=== PATIENT | male | born 1945 | race Caucasian/White ===

== ENCOUNTER → 2016-09-26 | Outpatient (CLI) | payer OTHER | LOC: MMPC 10:00 | PROVIDERS: ATTEND Podiatrist Foot & Ankle Surgery | DX: G89.18 Other acute postprocedural pain (principal) ==

== ENCOUNTER 2017-09-30 21:06 | Inpatient (IN) ==
--- NOTE | 2017-09-30 21:21 | PDOC ---
Lower Extremity Problem HPI - General Chief Complaint: Lower Extremity Problem/Injury Stated Complaint: LEFT LEG NUMBNESS AND TINGLING Date Seen by Provider: 09/30/17 Time Seen by Provider: 21:06 Source: POSITIVE: Patient, EMS Exam Limitations: POSITIVE: No limitations Nurse's Notes Reviewed & Considered: Yes EMS Report Reviewed & Considered: Verbal - History of Present Illness Initial Comments: This is a well-developed, well-nourished, 71-year-old male, complaining of stroke symptoms. Patient states that at 1800 hrs. today he had an episode of dizziness that seemed to have improved. He then went out with his family to eat at a local restaurant and approximately 2000 hrs. developed numbness in his left arm and leg with weakness on his left side as well. He had trouble standing because of the weakness in his leg, he did have ataxia present in both arm and leg, and states that his left hand was also weak. He denies any headache, no sore throat, no chest pain or shortness of breath, no nausea vomiting or diarrhea, no hematuria or dysuria, no rashes, no myalgias or arthralgias. Patient is alert and oriented to person place and time, is able to identify his age, as well as date and location. He states he did have some blurry vision in his left eye and that his symptoms have significantly improved. Body Location Affected: REPORTS: Upper Extremity (L), Lower Extremity (L) Timing: REPORTS: Abrupt Duration: 1-3 hours Severity: Moderate Recent Injury: REPORTS: No Context of Injury: DENIES: Fall, Twist, Direct Blow, Incision, Burn, Crush, Stab , Prolonged Pressure on Ext, Other Location at Time of Onset: REPORTS: Home Quality: REPORTS: Other (Numbness and tingling in his left-sided extremities) Modifying Factors: REPORTS: Nothing Exacerbates Associated Symptoms: DENIES: Chest Pain, Shortness of Breath, Rapid Heart Rate, Fainting, Other Similar Symptoms Previously: No Recent Care Received: REPORTS: Denies Any Prior Injuries Related to Current Complaint?: No - Patient Home Medications Home Medications: Home Medications Multivitamin [Multi-Vitamin Daily] 1 tab PO DAILY 09/30/17 - Patient Allergies Allergies/Adverse Reactions: Allergies 3 Allergy/AdvReac Type Severity Reaction Status Date / Time No Known Drug Allergies Allergy NOT Verified 09/30/17 21:45 APPLICABLE Past Medical History - heen HEENT History: Denies History Additional HEENT History: GLASSES Cardiovascular History: Hypertension, Hyperlipidemia Additional Respiratory History: HX OF PNEUMONIA Gastrointestinal History:  Additional Gastrointestinal History: HX OF POLYPS Additional Genitourinary History: BPH Endocrine History: Denies History Musculoskeletal History: Arthritis, Back Pain Prosthesis or Implant: No Neurological History: Denies History Blood Disorders: Denies History Psychiatric History: Denies History History of Sexually Transmitted Diseases: No Cancer History: Skin History of MDRO: No History of Other Communicable Diseases: No Alcohol Use: Rarely In the Past 12 Months, Have Used or Abuse Any Substance: None Previous Surgical History: Yes Type / Date of Surgery: SKIN CA REMOVAL/ COLONOSCOPY/ VASECTOMY Anesthesia Reactions: No Malignant Hyperthermia: No ROS - Limitations ROS Limitations: No Limitations Constitution: REPORTS: Weakness (Left-sided) Cardiovascular: REPORTS: Denies Cardiac Symptoms Respiratory: REPORTS: Denies Resp Symptoms Neurological: REPORTS: Dizziness, Tingling (Left-sided extremities), Numbness ( Left-sided extremities), Difficulty Walking, Weakness (Left-sided extremities) Gastrointestinal: REPORTS: Denies GI Symptoms Endocrine: REPORTS: Denies Symptoms Musculoskeletal: REPORTS: Denies MS Symptoms Genitourinary: REPORTS: Denies Symptoms Eyes: REPORTS: Denies Symptoms ENT: REPORTS: Denies Symptoms Skin: REPORTS: Denies Skin Symptoms Lympathic: REPORTS: Denies Lympathic Symptoms Immunologic: POSITIVE: Denies Symptoms Psychiatric: POSITIVE: Denies Psych Symptoms Images - Uploaded Photos Uploaded Photos: Lower Ext Problem Progress - Results Reviewed by me Xrays/CTs/US Reviewed by me: Yes Discussed with Radiologist: Yes Lab Results Reviewed by Me: Yes CBC and BMP: 09/30/17 21:38 09/30/17 21:38 - Patient's Progress MDM / ED Course: Patient was administered NIH stroke scale for which she scored a 5. He scored a 14 left arm drift 2 for left leg drift and a 2 for limb ataxia remainder of the exam was 0. CT of his head shows no acute intracranial abnormalities. - Consult Consult (If Yes, Name of Consulting MD & Time Called): Yes (Dr. Jimena jA 22:20 , Dr. Ibarra [id number]) Consulting MD will see pt:: POSITIVE: [facility] Admit Counseled: POSITIVE: Patient, Family, RE: Lab Results, RE: Radiology Results, RE : DX, RE: Need for F/U Patient Care Time - Estimated PCT Patient Care Time (In Minutes): 45 Vital Signs - VS Reviewed Vital Signs Reviewed: Yes Discharge Clinical Impression: TIA (transient ischemic attack) Discharge Disposition: Admit to Inpatient Condition: Stable Patient Instructions Given at Discharge: Transient Ischemic Attack (ED) Follow Up With: ROSA ZULUAGA [STAFF PHYSICIAN] - Date Decision to Admit to Inpatient: 09/30/17 Time Decision to Admit to Inpatient: 22:36
[2017-09-30] MEDS ORDERED: Sodium Chloride 0.9% 1,000 ML PRIMARY IV ONE (21:27)
[2017-09-30] MEDS ORDERED: CloNIDine Tab 0.1 MG TABLET PO ONE (21:27)
--- NOTE | 2017-09-30 21:41 | DI ---
EXAM: CT Head Without Intravenous Contrast CLINICAL HISTORY: ITS.REASON numbness, lt. arm and leg, weakness lt side Physician Notes: Tech Comments: TECHNIQUE: Axial computed tomography images of the head/brain without intravenous contrast. COMPARISON: No relevant prior studies available. FINDINGS: Brain: A 4 cm posterior left parietal arachnoid cyst appears to be present. No hemorrhage. No significant white matter disease. Ventricles: Unremarkable. No ventriculomegaly. Bones/joints: Unremarkable. No acute fracture. Soft tissues: Unremarkable. Sinuses: Unremarkable as visualized. No acute sinusitis. Mastoid air cells: Unremarkable as visualized. No mastoid effusion. IMPRESSION: No acute findings.
[2017-09-30 21:43] LABS: BASOPHILS # (AUTO) 0.04 10*3/UL; BASOPHILS % (AUTO) 0.5 % (0-1); EOSINOPHILS # (AUTO) 0.25 10*3/UL; EOSINOPHILS % (AUTO) 2.9 % (0-8); Hematocrit [HCT] 41.3 % (42.0-52.0); Hemoglobin [HGB] 14.5 g/dL (14.0-18.0); LYMPHOCYTES # (AUTO) 2.54 10*3/uL; MEAN CORPUSCULAR HEMOGLOBIN 29.7 PG (27-31); MEAN CORPUSCULAR HGB CONC 35.1 g/dL (33-37); MEAN CORPUSCULAR VOLUME 84.6 FL (80-90); MEAN PLATELET VOLUME 11.7 FL (7.4-12.2); MONOCYTES # (AUTO) 0.62 10*3/UL (0.3-0.8); MONOCYTES % (AUTO) 7.2 % (5-15); NEUTROPHILS # (AUTO) 5.18 10*3/UL; NEUTROPHILS % (AUTO) 59.8 % (50-80); RED BLOOD COUNT 4.88 10^6/uL (4.70-6.10)
[2017-09-30 21:45] LABS: PLATELET MORPHOLOGY COMMENT NORMAL MORPHOLOGY (NORM); RBC MORPHOLOGY COMMENT NORMAL MORPHOLOGY (NORM); WBC MORPHOLOGY COMMENT NORMAL MORPHOLOGY (NORM)
[2017-09-30 21:52] LABS: BLOOD UREA NITROGEN 18 mg/dL (7-22); SERUM ALBUMIN 4.5 g/dL (3.5-4.8)
[2017-09-30 22:52] LABS: CHOL/HDL RATIO 11.28 RATIO (0-4.0)
[2017-09-30] MEDS ORDERED: ASPIRIN 81 MG (BABY) CHEWABLE TABLET PO ONE (22:52)
[2017-09-30] MEDS ORDERED: LIDOCAINE W/ SODIUM BICARB 0.5 ML SYR SUBD PRN (23:16)
[2017-09-30] MEDS ORDERED: NORMAL SALINE 10 ML SYRINGE FLUSH IVP PRN (23:16)
[2017-09-30] MEDS ORDERED: LABETALOL 20 MG/4 ML (5 MG/1 ML) SYRINGE IVP PRN (23:48)
--- NOTE | 2017-09-30 23:51 | EKG ---
[address] [address] Measurements Intervals [place] Rate: 72 P: 51 DC: 237 QRS: -2 QRSD: 128 T: -37 QT: 406 QTc: 431 Interpretive Statements SINUS RHYTHM WITH FIRST DEGREE AV BLOCK WITH OCCASIONAL VENTRICULAR PREMATURE COMPLEXES LEFT ATRIAL ENLARGEMENT RIGHT VENTRICULAR CONDUCTION DELAY [RSR (QR) IN V1/V2] NONSPECIFIC T-WAVE ABNORMALITY No previous ECG available for comparison Electronically Signed On 10-01-17 16:51:46 MDT by Chase Alvarez [id number]
[2017-10-01] MEDS ORDERED: ACETAMINOPHEN 325 MG TABLET PO PRN (00:01)
--- NOTE | 2017-10-01 00:04 | HOSP.PROG ---
ABCD-2 Score - ABDC-2 Score Age Greater Than or Equal to 60 Years: Yes SBP Greater Than/Equal 140 or DBP Greater Than/Equal 90: Yes Clinical Features of the TIA: Unilateral Weakness Duration of Symptoms: Greater Than 60 Minutes History of Diabetes: No (admitting for work up of potential etiology of CVA vs TIA) ABCD-2 Score: 6 ABCD-2 Risk: High
--- NOTE | 2017-10-01 00:09 | PDOC ---
HPI - History of Present Illness Date of Service: 09/30/17 Time of Service: 23:55 Chief Complaint: Left leg and arm weakness History of Present Illness: This is a very pleasant 71-year-old male without really any significant prior past medical history beyond colon polyps who presents tonight accompanied by his with complaints of left leg weakness and left arm weakness. He states that his symptoms started at around 6:30 PM tonight. 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 He went home, made dinner, and he noticed that his feet were feeling heavy, left greater than right. He stated that he could not put his left finger to his right finger and that he had to concentrate a lot to do that. He had a headache and attributed initially to sinuses as he gets occasional sinus headaches (predominantly in the fall) that he would take a Sudafed to treat. He notes that he felt somewhat lightheaded as well. He denied any chest pain, shortness breath, nausea or vomiting with these symptoms. After dinner, he finished the dishes and sat down. He tried to get up and fell straight to the floor. He was brought in for evaluation. His initial CT scan of his head was negative for any bleeding. There was an arachnoid cyst seen. I discussed with the emergency room physician and it was felt that the patient was outside of any tPA window. He did not have any slurred speech. He has not had any difficulty swallowing. He does not smoke. He has never had symptoms like this before. He stated to me that he takes a baby aspirin on most days. He rarely drinks alcohol. He states that he has had some high cholesterol for some time. He was intolerant of statin therapy in the past. He does not have diabetes. The patient's symptoms seemed to get a little better in the emergency room and my discussion with emergency room physician, but the patient states that they' re probably about the same as they were at 6:30 tonight. Past Medical History Medical History: 1. Colon polyps Surgical History: 1. Colonoscopy most recently done about 3 years ago. Pertinent Family History: Mother had a stroke after pacemaker placement at age 91. Patient's father of a massive heart attack at 32. Past Social History: Patient's been for 50 years, has 2 children ascribed as healthy. 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 Does not smoke and drinks about 2 glasses of wine per month. Tobacco Use: Never Smoker In the Past 12 Months, Have Used or Abuse Any of the Following Substance: None Alcohol Use: Occasionally Medication / Allergies Home Medications: Home Medications 3 Medication Instructions Recorded Confirmed Type Multivitamin [Multi-Vitamin Daily] 1 tab PO DAILY 09/30/17 09/30/17 History Allergies/Adverse Reactions: Allergies 3 Allergy/AdvReac Type Severity Reaction Status Date / Time No Known Drug Allergies Allergy NOT Verified 09/30/17 21:45 APPLICABLE Review of Systems - Review of Systems All Systems: Reviewed & No Additional Complaints Except as Stated (I did a 12 point review systems and it is negative other than that discussed in the history of present illness and that noted below.) - Constitutional Constitutional: REPORTS: Negative System Review, Other (Has been trying to lose weight, but it has not been coming off.) - Cardiovascular Cardiovascular: REPORTS: Negative System Review - Gastrointestinal Gastrointestinal / Abdominal: REPORTS: Negative System Review - Genitourinary Genitourinary: REPORTS: Negative System Review - Neurological Neurologic: REPORTS: Headache (In the fall, generally resolve with the Sudafed.) - Psychiatric Psychiatric: REPORTS: Negative System Review - Additonal Details Additional ROS Details: Snores frequently but does not wake up frequently at night. This history was obtained from the patient's . Exam - Vitals Vital Signs: Vital Signs Temperature 97.9 F Temperature Source Temporal Artery Scan Pulse Rate [Pulse Oximeter] 78 Pulse Rate 81 Respiratory Rate 21 Blood Pressure [Left Arm] 201/105 Pulse Ox 94 Oxygen Delivery Method Room Air Height 6 ft 1 in Weight 250 lb - General General Appearance: No Acute Distress, Cooperative, Obese - Head Head Exam: Normal Inspection, Normocephalic, Atraumatic - Eye Eye Exam: POSITIVE: Normal Appearance, No Scleral Icterus - ENT ENT Exam: POSITIVE: Mucous Membranes Moist - Neck Neck Exam: Normal Inspection, No Tenderness, No Lymphadenopathy, No Thyromegaly , JVP is not Raised - Respiratory Respiratory Exam: POSITIVE: Clear to Auscultation - Bilaterally, Breathing Non Labored - Cardiovascular Cardiovascular Exam: POSITIVE: RRR, No Murmur, No Clicks, No Gallops, No Rubs, No JVD - GI/Abdominal GI/Abdominal Exam: POSITIVE: Normal Bowel Sounds, Non Tender, Non Distended, Soft - Rectal Rectal Exam: POSITIVE: Deferred - External Exam: POSITIVE: Deferred Exam: POSITIVE: Deferred - Extremities Extremities Exam: POSITIVE: No Clubbing Present, No Edema Present (I suspect there could be some trace lower extremity edema.), No Cyanosis Present - Back Back Exam: POSITIVE: No CVA Tenderness - Neurological Neurological Exam: POSITIVE: Alert, Oriented x 3, CN II-XII Intact, No Facial Droop, Speech Intact / Clear, Abnormal Gait Additional Neurological Exam Details: He has some intrinsic muscle weakness in the left hand compared to the right, 4 over 5. The patient's left leg did not support his weight, but he could lift it against gravity. No facial droop. - Psychiatric Psychiatric Exam: POSITIVE: Normal Affect, Normal Mood Results - Labs CBC and BMP: 09/30/17 21:38 09/30/17 21:38 Additional Lab Results: Laboratory Results 09/30/17 09/30/17 09/30/17 Range/Units 21:26 21:38 21:38 WBC 8.65 (4.8-10.8) 10^3/uL RBC 4.88 (4.70-6.10) 10^6/uL Hgb 14.5 (14.0-18.0) g/dL Hct 41.3 L (42.0-52.0) % MCV 84.6 (80-90) FL MCH 29.7 (27-31) PG MCHC 35.1 (33-37) g/dL RDW Std Deviation 43.5 (39-50) fL RDW Coeff of Damien 14.4 (11.5-14.5) % Plt Count 201 (140-350) 10*3/uL MPV 11.7 (7.4-12.2) FL Immature Gran % (Auto) 0.2 (0-5) % Neut % (Auto) 59.8 (50-80) % Lymph % (Auto) 29.4 (10-50) % [place] % (Auto) 7.2 (5-15) % Eos % (Auto) 2.9 (0-8) % Baso % (Auto) 0.5 (0-1) % Immature Gran # (Auto) 0.02 10*3/UL Neut # (Auto) 5.18 10*3/UL Lymph # (Auto) 2.54 10*3/uL [place] # (Auto) 0.62 (0.3-0.8) 10*3/UL Eos # (Auto) 0.25 10*3/UL Baso # (Auto) 0.04 10*3/UL WBC Morphology Comment Normal morphology (NORM) Plt Morphology Comment Normal morphology (NORM) RBC Morph Comment Normal morphology (NORM) Sodium 143 (135-145) meq/L Potassium 3.6 L (3.8-5.2) meq/L Chloride 104 (98-112) meq/L Carbon Dioxide 24 (23-33) meq/L Anion Gap 15 (5-20) BUN 18 (7-22) mg/dL Creatinine 1.0 (0.70-1.50) mg/dL BUN/Creatinine Ratio 18.00 (6-20) Glucose 106 (78-110) mg/dL Calculated Osmolality 297.0 H (267-292) mOsm/kg Calcium 9.2 (8.7-10.7) mg/dL Magnesium 2.3 (1.6-2.4) mg/dL Total Bilirubin 0.4 (0.3-1.2) mg/dL AST 21 (21-57) IU/L ALT 38 (21-72) IU/L Alkaline Phosphatase 79 (38-126) IU/L Lactate Dehydrogenase 436 (313-618) IU/L C-Reactive Protein 1.4 H (0.0-0.9) mg/dL Total Protein 7.7 (6.1-8.0) g/dL Albumin 4.5 (3.5-4.8) g/dL Globulin 3.3 (2.50-4.10) g/dL Albumin/Globulin Ratio 1.30 (1.3-2.0) mg/g Triglycerides 638 H (44-200) mg/dL Cholesterol 316 H (120-200) mg/dL LDL Cholesterol, Calc 160.400 mg/dL VLDL Cholesterol 127 H (0-40) mg/dL HDL Cholesterol 28 L (40-150) mg/dL Cholesterol/HDL Ratio 11.28 H (0-4.0) RATIO TSH (0.2700-4.2000) uIU/mL Free T4 (0.93-1.71) ng/dL Serum Alcohol < 10 (0-10) mg/dL 09/30/17 Range/Units 21:38 WBC (4.8-10.8) 10^3/uL RBC (4.70-6.10) 10^6/uL Hgb (14.0-18.0) g/dL Hct (42.0-52.0) % MCV (80-90) FL MCH (27-31) PG MCHC (33-37) g/dL RDW Std Deviation (39-50) fL RDW Coeff of Damien (11.5-14.5) % Plt Count (140-350) 10*3/uL MPV (7.4-12.2) FL Immature Gran % (Auto) (0-5) % Neut % (Auto) (50-80) % Lymph % (Auto) (10-50) % [place] % (Auto) (5-15) % Eos % (Auto) (0-8) % Baso % (Auto) (0-1) % Immature Gran # (Auto) 10*3/UL Neut # (Auto) 10*3/UL Lymph # (Auto) 10*3/uL [place] # (Auto) (0.3-0.8) 10*3/UL Eos # (Auto) 10*3/UL Baso # (Auto) 10*3/UL WBC Morphology Comment (NORM) Plt Morphology Comment (NORM) RBC Morph Comment (NORM) Sodium (135-145) meq/L Potassium (3.8-5.2) meq/L Chloride (98-112) meq/L Carbon Dioxide (23-33) meq/L Anion Gap (5-20) BUN (7-22) mg/dL Creatinine (0.70-1.50) mg/dL BUN/Creatinine Ratio (6-20) Glucose (78-110) mg/dL Calculated Osmolality (267-292) mOsm/kg Calcium (8.7-10.7) mg/dL Magnesium (1.6-2.4) mg/dL Total Bilirubin (0.3-1.2) mg/dL AST (21-57) IU/L ALT (21-72) IU/L Alkaline Phosphatase (38-126) IU/L Lactate Dehydrogenase (313-618) IU/L C-Reactive Protein (0.0-0.9) mg/dL Total Protein (6.1-8.0) g/dL Albumin (3.5-4.8) g/dL Globulin (2.50-4.10) g/dL Albumin/Globulin Ratio (1.3-2.0) mg/g Triglycerides (44-200) mg/dL Cholesterol (120-200) mg/dL LDL Cholesterol, Calc mg/dL VLDL Cholesterol (0-40) mg/dL HDL Cholesterol (40-150) mg/dL Cholesterol/HDL Ratio (0-4.0) RATIO TSH 4.25 H (0.2700-4.2000) uIU/mL Free T4 0.91 L (0.93-1.71) ng/dL Serum Alcohol (0-10) mg/dL - EKG Data -: EKG Interpreted by Me - EKG Data EKG Interpretation: Other (Patient has what appears to be an AV block, first- degree with occasional PVC.) - Imaging Status: Image Reviewed by Me (CT of the head does not have any evidence of acute blood.) Assessment and Plan - Patient Problems (1) Stroke Current Visit: Yes Status: Acute Code(s): I63.9 - Cerebral infarction, unspecified Qualifiers: CVA mechanism: unspecified Qualified Code(s): I63.9 - Cerebral infarction, unspecified (2) Elevated blood pressure reading Current Visit: Yes Status: Acute Code(s): R03.0 - Elevated blood-pressure reading, without diagnosis of hypertension (3) Hypercholesterolemia Current Visit: Yes Status: Acute Code(s): E78.00 - Pure hypercholesterolemia , unspecified (4) Hypothyroidism Current Visit: Yes Status: Acute Code(s): E03.9 - Hypothyroidism, unspecified Qualifiers: Hypothyroidism type: acquired Qualified Code(s): E03.9 - Hypothyroidism, unspecified (5) Obesity (BMI 30.0-34.9) Current Visit: Yes Status: Acute Code(s): E66.9 - Obesity, unspecified - Assessment / Plan Additional Assessment/Plan Details: Admit the patient. Get brain MRI scan in the morning as well as echocardiogram. Will get MRA of head and neck to assess carotids and cerebral vascular structures. Antiplatelet therapy. Given this is an acute situation, aspirin, 325 mg for now , and depending on workup may switch to either Plavix, dual antiplatelet therapy , or anticoagulant if indicated cardioembolic source. Telemetry monitoring. Permissive hypertension to systolic of 220 or higher and diastolic of 120 or higher. Tylenol when necessary for fever If blood sugars indicate, check them. PT/OT/speech therapy if indicated during the hospital stay. Check lipids and institute statin therapy as indicated by lipid panel. Aspiration precautions. Plan above discussed with patient and he agrees. Discussed CODE STATUS, patient is full code.
[2017-10-01 04:50] LABS: CHOL/HDL RATIO 9.32 RATIO (0-4.0)
[2017-10-01] MEDS: ASPIRIN 325 MG TABLET PO SCH (08:43)
[2017-10-01] MEDS: ENOXAPARIN SODIUM 40 MG/0.4 ML SYRINGE SUBCUT SCH (08:43)
[2017-10-01] MEDS: Multivitamin Tab 1 TAB PO SCH (08:43)
--- NOTE | 2017-10-01 12:15 | DI ---
MRI Brain WO Contrast,10/01/2017 7:00 AM: Clinical History: Left-sided weakness. Previous Exam: None at this facility. Findings: Multiplanar MR images are obtained through the brain without contrast, and demonstrates a 14 x 8 mm f ocus of abnormally restricted diffusion involving the posterior right thalamus. This appears to exten d into the posterior horn of the internal capsule as well. There is no hemorrhage nor midline shift. There are some scattered areas of increased FLAIR and T2 signal within the periventricular and subcor tical white matter. The major vascular flow voids are unremarkable. Paranasal sinuses are unremarkable. Intraorbital stru ctures are also unremarkable. Impression: 14 x 8 mm focus of abnormally restricted diffusion involving the pulvinar portion of the right thalam us. This is consistent with an acute ischemic event. Few scattered areas of increased FLAIR and T2 signal most consistent with small vessel ischemic louis es.
--- NOTE | 2017-10-01 12:30 | DI ---
MRI MRA Head WO Contrast,10/01/2017 7:00 AM: Clinical History: Left-sided weakness. Previous Exam: None at this facility. Findings: Multiplanar MR images are obtained through the [place] following a 3-D [id number] protoc ol, and demonstrates absence of a right anterior cerebral artery involving the A1 segment. The anterior communicating artery is widely patent. Both A2 segments are also widely patent. The middle cerebral arteries are normal. The vertebral arteries are not well evaluated. The basilar artery is normal. Posterior communicating arteries are diminutive, but the left posterior communicating artery is visible. The right vertebral artery is extremely diminutive. Impression: 1. 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 There is no evidence that this aberration contributes to the acute ischemic event on the cont ralateral side.
--- NOTE | 2017-10-01 13:34 | DI ---
MRI MRA Neck WO Contrast,10/01/2017 7:00 AM: Clinical History: Transient ischemic attack. Previous Exam: None at this facility. Findings: Multiplanar MR images are obtained through the neck following a 2-D [id number] protocol, and demo nstrates extremely limited evaluation due to motion artifact and poor [id number] ratio. There is irregularity of the carotid arteries bilaterally, but this is believed to be largely artifactual. There is normal course and caliber the carotid bulb on the right was not well evaluated. There appear s to be some plaque formation within the carotid bulbs, but this cannot be confirmed on these images. The left vertebral artery was only partially visible, but grossly normal. The right vertebral artery is not seen on this exam and was proven to be diminutive on the examination of the head. Impression: Extremely limited MRA images of the cervical vasculature. This appears to be predominantly due to art ifact likely motion related.
[2017-10-01] MEDS ORDERED: POTASSIUM CHLORIDE 20 MEQ TAB PO ONE (14:59)
--- NOTE | 2017-10-01 15:03 | PDOC(PROG) ---
Date and Time of Service: 10/01/2017, 1500 Interval History: No chest pain. No shortness breath. No nausea or vomiting. Left side is not any stronger today. He is a little frustrated by that. Workup thus far shows an acute thalamic stroke with what appears to be small vessel ischemic disease. We did not get the best imaging carotid arteries with MRA of the neck so we will do ultrasound. Objective : Data - Labs CBC and BMP: 09/30/17 21:38 09/30/17 21:38 - Imaging MRI Status: Report Reviewed by Me (MRI of the brain shows acute thalamic stroke. 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 MRA of the neck inconclusive for carotid artery disease) Objective : Exam - General General Appearance: No Acute Distress, Cooperative Additional General Exam Details: Vital Signs (24 hrs) Temp Pulse Pulse Resp BP BP Pulse Ox 10/01/17 12:42 98 F 68 18 163/111 94 10/01/17 08:41 96.8 F 69 18 203/115 95 10/01/17 07:00 71 10/01/17 05:24 92 10/01/17 04:29 97.4 F 20 173/98 96 10/01/17 03:00 61 09/30/17 23:31 97.9 F 78 21 201/105 94 09/30/17 23:07 97.4 F 81 18 167/82 94 09/30/17 22:33 167/82 09/30/17 22:12 164/87 09/30/17 20:51 97.4 F 83 18 201/134 94 - Eye Eye Exam: No Scleral Icterus - ENT ENT Exam: Mucous Membranes Moist - Respiratory Respiratory Exam: Clear to Auscultation - Bilaterally, Breathing Non Labored - Cardiovascular Cardiovascular Exam: RRR, No Murmur, No Clicks, No Gallops, No Rubs, No JVD - GI/Abdominal GI/Abdominal Exam: Normal Bowel Sounds, Non Tender, Non Distended, Soft - Extremities Extremities Exam: No Clubbing Present, No Edema Present, No Cyanosis Present - Neurological Neurological Exam: Alert, Oriented x 3, No Facial Droop, Speech Intact / Clear Additional Neurological Exam Details: Left upper extremity and lower extremity +4 over 5 bilaterally. Not any better than yesterday. Assessment and Plan - Patient Problems (1) Stroke Current Visit: Yes Status: Acute Code(s): I63.9 - Cerebral infarction, unspecified Qualifiers: CVA mechanism: unspecified Qualified Code(s): I63.9 - Cerebral infarction, unspecified (2) Elevated blood pressure reading Current Visit: Yes Status: Acute Code(s): R03.0 - Elevated blood-pressure reading, without diagnosis of hypertension (3) Hypercholesterolemia Current Visit: Yes Status: Acute Code(s): E78.00 - Pure hypercholesterolemia , unspecified (4) Hypothyroidism Current Visit: Yes Status: Acute Code(s): E03.9 - Hypothyroidism, unspecified Qualifiers: Hypothyroidism type: acquired Qualified Code(s): E03.9 - Hypothyroidism, unspecified (5) Hypertension Current Visit: Yes Status: Acute Code(s): I10 - Essential (primary) hypertension Qualifiers: Hypertension type: essential hypertension Qualified Code(s): I10 - Essential (primary) hypertension (6) Obesity (BMI 30.0-34.9) Current Visit: Yes Status: Acute Code(s): E66.9 - Obesity, unspecified - Assessment / Plan Additional Assessment/Plan Details: Continue permissive hypertension. PT and OT. DVT prophylaxis/cholesterol medication/continue aspirin/likely to Plavix depending on outcome of ultrasound of carotid arteries. If significant stenosis may need to work towards acute carotid endarterectomy. The rehabilitation options including [facility] or [facility]. Started Synthroid.
--- NOTE | 2017-10-01 18:13 | DI ---
EXAM: US Duplex Bilateral Extracranial Arteries CLINICAL HISTORY: ITS.REASON stroke, question carotid artery disease Physician Notes: Tech Comments: TECHNIQUE: Real-time duplex ultrasound scan of the extracranial arteries integrating B-mode two-dimensional vascular structure, Doppler spectral analysis and color flow Doppler imaging. COMPARISON: No relevant prior studies available. FINDINGS: Right common carotid artery: No occlusion or significant stenosis on color flow and spectral Doppler imaging. Peak systolic velocity 74 - 83 cm/sec. Right internal carotid artery: No occlusion or significant stenosis on color flow and spectral Doppler imaging. Peak systolic velocity of 105 cm/sec. Right vertebral artery: Minimal flow detected. Right ICA/CCA ratio: 1.4. Left common carotid artery: No occlusion or significant stenosis on color flow and spectral Doppler imaging. Low peak systolic velocities 93 - 126 cm/sec Left internal carotid artery: No occlusion or significant stenosis on color flow and spectral Doppler imaging. Peak systolic velocity of 144 cm/sec Left vertebral artery: Antegrade flow.. Left ICA/CCA ratio: 1.1 CAROTID STENOSIS REFERENCE USING SRU CRITERIA: Mild - <50% stenosis. ICA PSV is less than 125 cm/second and plaque or intimal thickening is visible. Moderate - 50-69% stenosis. ICA PSV is 125 to 230 cm/second and plaque is visible. Severe - 70-94% stenosis. ICA PSV is more than 230 cm/second and visible plaque with lumen narrowing is seen. Near occlusion - 95-99% stenosis. ICA PSV is variable and significant plaque with luminal narrowing is seen. Occluded - 100% stenosis. No flow identified. IMPRESSION: No hemodynamically significant stenosis in the carotids. Less than 50% stenosis on the right and 50 - 69% stenosis on the left. Minimal flow in the right vertebral artery.
[2017-10-01] MEDS ORDERED: LISINOPRIL 20 MG TABLET PO ONE (20:20)
[2017-10-01] MEDS ORDERED: ATORVASTATIN 40 MG TABLET PO SCH (21:00)
[2017-10-02] MEDS: LEVOTHYROXINE 50 MCG TABLET PO SCH (04:47)
[2017-10-02] MEDS: ASPIRIN 325 MG TABLET PO SCH (09:05)
[2017-10-02] MEDS: LISINOPRIL 20 MG TABLET PO SCH (09:05)
[2017-10-02] MEDS: ENOXAPARIN SODIUM 40 MG/0.4 ML SYRINGE SUBCUT SCH (09:05)
[2017-10-02] MEDS: CLOPIDOGREL 75 MG TABLET PO SCH (09:05)
[2017-10-02] MEDS: Multivitamin Tab 1 TAB PO SCH (09:06)
[2017-10-02] MEDS ORDERED: ATORVASTATIN 40 MG TABLET PO SCH (09:26)
--- NOTE | 2017-10-02 10:16 | PTI REPORT ---
Thank you for the referral of Sav Dean. He was seen on 10/01/17 for an inpatient evaluation secondary to a TIA. SUBJECTIVE: The patient is a 71-year-old male who states that at approximately 6:30 last night he started to get some heaviness in his bilateral lower extremities. 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 The patient stated that he started to get a headache and felt a little lightheaded and dizzy. He states that the prior three days before these symptoms started he was feeling very fatigued. The patient states that once he was at home, at about 8:30, he tried to stand up and his left lower extremity would not work and he fell to the ground. The patient states that his had to call for an ambulance and he was brought to the hospital. The patient reports he has weakness and numbness tingling into the left upper extremity, mainly into the hand and the left lower extremity down to the foot. The patient was admitted to the hospital. The patient states that he may have sustained a mild stroke from what he understands. He continues to have about the same symptoms as he had last night. Per nursing report, the patient is scheduled for an MRI today at 10:45, but therapy was allowed to perform an evaluation prior to the MRI. The patient states that he lives here in [place] with his . He states that they live in a single level home with a ramp to get into the house and the only stairs he has are to get into his basement which he does not utilize often. The patient reports no prior use of an assistive device and no prior history of falls. The patient states that since his initial incident last night, he has been feeling more lightheaded, especially with movement or any kind of exertion. The patient denies any kind of significant past medical history and denies any similar symptoms in his previous history. PAST MEDICAL HISTORY: Past medical history can be found in the patient's medical record. OBJECTIVE FINDINGS: General observations: The patient was alert and oriented to setting upon PT arrival. The patient was laying in bed with head of bed elevated. Bed mobility: The patient required mod verbal cueing and mod assist x1 in order to go from supine to seated edge of bed position. The patient was able to sit edge of bed. He did support himself with the railing on the right and with his left upper extremity onto the mat. The patient required min assist x1 to go from seated edge of bed to supine position and required max cueing and assistance to hold his left lower extremity in place as he performed bridges for bed mobility to scoot up in bed. Range of motion: The patient was able to perform within functional limits of motion on the right upper extremity. The patient's right lower extremity had motion that was within functional limits. The patient was able to perform left shoulder mobility. The patient had difficulty performing ankle dorsiflexion and plantarflexion in a seated position on the left side. Strength: The patient demonstrated 5/5 strength on the right upper extremity. The patient's right lower extremity demonstrated 5/5 strength. The patient demonstrated left shoulder and elbow strength of 3/5. 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 The patient performed opposition with the left and the right hand; he struggled with the left 4th and 5th digits. Left lower extremity strength was 3/5. Vision: We also tested the patient's vision in a seated position with tracking and convergence. The patient denied any visual changes. With convergence, we had a little difficulty with the left eye. In a seated position we performed finger to nose test. The patient did well on the right side but had slight misjudgment but required additional time to get the left finger to the nose. ASSESSMENT: The patient has fair rehab potential secondary to his age and presentation. Problem List: Weakness of the left upper extremity and left lower extremity Patient requires assistance with transfers Short-Term Goals: To be met by discharge from inpatient: Patient will be able to perform transfers from bed to stand safely and independently with appropriate assistive device. Patient will be able to ambulate at least 100 feet with most appropriate assistive device and will most likely need an AFO on the left lower extremity. We will know more once we can get the patient up and he has his shoes present for our therapy session. Patient will demonstrate 4/5 strength of the left upper extremity and left lower extremity. Long-Term Goals: To be met following discharge from inpatient: Patient most likely will need continued outpatient physical therapy in order to address deficits that remain following his discharge from inpatient. TREATMENT PLAN: Patient will be seen B.I.D during the week and one time per day over the weekend as an inpatient for working on safety and independence with transfers, safety and independence with gait, and general strengthening activities. INITIAL TREATMENT: Treatment today consisted of the initial evaluation followed by one unit of functional activity. The patient had difficulty performing ankle dorsiflexion and plantarflexion in a seated position on the left side. He was able to perform hip abduction/adduction and was able to perform hip flexion and knee flexion/extension within functional range. Following treatment, the patient was left in bed with bed alarm set and call light within reach. [facility]
--- NOTE | 2017-10-02 11:05 | PT PM DAY ---
Diagnosis : TIA PM - Physical Therapy S: The patient states he is doing fair this afternoon. He still complains of being lightheaded at times and states that he is supposed to have an ultrasound this afternoon to check his carotid artery. The patient states that he continues to have some difficulties with that left hand along with weakness of that left lower extremity. He states that earlier today when they transferred him for an MRI, he required assist of two as his left lower extremity wouldn't work, as he put it. O: Treatment today consisted of the patient transferring from supine to edge of bed with mod assist x1. The patient demonstrated fair seated edge of bed balance. We did attempt a sit to stand from edge of bed. The patient required min assist of two in order to go from a seated to standing position. In a standing position, he required mod assist in order to stay upright as he had tendencies to fall to the left side. We did perform some light weight shifting from right to left in the standing position for one minute. The patient continued to require tactile cueing on the left in order to prevent him from going too far toward the left side and he utilized hand hold assist x2 on the walker. The patient stated after 2 minutes of standing that he was pretty lightheaded so he performed a stand to seated transfer. The patient's blood pressure was taken in a seated position. He was at 185/112. The patient then required mod assist x2 in order to go from a seated edge of bed to supine position. The patient was left in his bed and left with certified surgical tech/first assistant. A: We were unable to try the AFO or any walking as the patient doesn't have any shoes at this time. His did state that she will get some and bring them for therapy tomorrow. We would like to see if may an AFO might help him a little bit when we actually start ambulating as we suspect he might have a little drop foot, but right now he is limited due to complaints of lightheadedness and demonstrates a lateral lean to that left side and requires constant tactile cueing in order to get him upright. P: Continue seeing patient BID during the week and one time per day over the weekend for transfers, ambulation, and range of motion/strengthening exercises. KIRILL
--- NOTE | 2017-10-02 13:35 | OT.PROG ---
Progress Note Progress Note: S: pt reports that he is feeling better today. O; pt was seen in his room and assisted PT with transfer. After he transferred to chair he was assisted with doffing/donning of LE garments with min A. He completed x1 more sit to stand with min A. He then received prop input through LUE and L LE. He was left in chair with alarm on and call light within reach. A: pt appears to have full motion of LUE but decreased FM/dexterity with L hand. He may continue to benefit from therapy to increase overall function. P: continue per POC.
[2017-10-02] MEDS ORDERED: POTASSIUM CHLORIDE 20 MEQ TAB PO ONE (14:37)
--- NOTE | 2017-10-02 14:39 | PDOC(PROG) ---
Date and Time of Service: 10/02/2017, 1435 Interval History: states he has no chest pain or SOB, no N/V. left leg slightly stronger. discussed stroke with and plan for rehab at [facility] as well as neurology and primary care follow up. Objective : Data - Labs CBC and BMP: 09/30/17 21:38 09/30/17 21:38 Objective : Exam - General General Appearance: No Acute Distress, Cooperative Additional General Exam Details: Vital Signs - Last Taken Temperature 96.6 F L 10/02/17 11:33 Pulse Rate 82 10/02/17 11:33 Respiratory Rate 18 10/02/17 11:33 Blood Pressure 147/89 10/02/17 11:33 Pulse Ox 93 10/02/17 11:33 - Eye Eye Exam: No Scleral Icterus - ENT ENT Exam: Mucous Membranes Moist - Respiratory Respiratory Exam: Clear to Auscultation - Bilaterally, Breathing Non Labored - Cardiovascular Cardiovascular Exam: RRR, No Murmur, No Clicks, No Gallops, No Rubs, No JVD - GI/Abdominal GI/Abdominal Exam: Normal Bowel Sounds, Non Tender, Non Distended, Soft - Extremities Extremities Exam: No Clubbing Present, No Edema Present, No Cyanosis Present - Neurological Neurological Exam: Alert, Oriented x 3, No Facial Droop, Speech Intact / Clear Additional Neurological Exam Details: some improvements in LE strength on left has brace to help prevent foot drop. Assessment and Plan - Patient Problems (1) Stroke Current Visit: Yes Status: Acute Code(s): I63.9 - Cerebral infarction, unspecified Qualifiers: CVA mechanism: thrombosis Precerebral and cerebral artery: unspecified cerebral artery Qualified Code(s): I63.30 - Cerebral infarction due to thrombosis of unspecified cerebral artery (2) Hypercholesterolemia Current Visit: Yes Status: Acute Code(s): E78.00 - Pure hypercholesterolemia , unspecified (3) Hypothyroidism Current Visit: Yes Status: Acute Code(s): E03.9 - Hypothyroidism, unspecified Qualifiers: Hypothyroidism type: acquired Qualified Code(s): E03.9 - Hypothyroidism, unspecified (4) Hypertension Current Visit: Yes Status: Acute Code(s): I10 - Essential (primary) hypertension Qualifiers: Hypertension type: essential hypertension Qualified Code(s): I10 - Essential (primary) hypertension (5) Obesity (BMI 30.0-34.9) Current Visit: Yes Status: Acute Code(s): E66.9 - Obesity, unspecified (6) LVH (left ventricular hypertrophy) due to hypertensive disease Current Visit: Yes Status: Acute Code(s): I11.9 - Hypertensive heart disease without heart failure Qualifiers: Heart failure presence: without heart failure Qualified Code(s): I11.9 - Hypertensive heart disease without heart failure - Assessment / Plan Additional Assessment/Plan Details: continue statin, high dose dual antiplatelet therapy for 21 days, then plavix follow up with neurology for secondary stroke prevention, carotid artery stenosis monitoring PT and OT, acute rehab hospital late today or tomorrow primary care follow up will add second blood pressure agent but given drop in BP over last 24 hours, will wait until tomorrow to determine.
--- NOTE | 2017-10-02 15:43 | PT AM DAY ---
Diagnosis : TIA AM - Physical Therapy S: The patient reports he is getting sore laying in bed and would like to move. He states he cannot feel the AFO on his left foot, but he knows he has been sliding out of it. O: Treatment today consisted of bed mobility including the patient rolling to the right. The patient then transferred from supine to sit with mod assist. The patient was able to complete sit to stand transfer to four point walker with mod assist x2 with AFO on left lower extremity and shoes. The patient had additional Velcro strap added to AFO to decrease plantarflexion push up and out of AFO. The patient was able to do one minute of weight shifts with 4 point walker with mod assist x2 and was able to ambulate 5 feet with mod assist x2. The patient was able to complete lower extremity exercises including pillow squeezes x10, seated marches x10, long arc quads x10, and ankle pumps x10 bilaterally. The patient was left in his chair with call button within reach in no apparent distress. Nursing was made aware. A: The patient did very well today with standing and ambulation activities. He did report fatigue and a "weird" feeling at which point vitals were assessed and were normal. Nursing was notified. P: Continue seeing patient BID during the week and one time per day over the weekend for transfers, ambulation, and range of motion/strengthening exercises. MTDD
--- NOTE | 2017-10-02 17:10 | PT.PROG ---
Progress Note Progress Note: S: Fausto states that he is doing okay this afternoon - reports that he feels that he is making some small improvements. Pt participated in OT prior to PT. O: Tx consisted of: swiss e-stim to anterior tib to promote ankle DF due to drop foot x 10 min with pt utilizing towel to pull foot into DF with estim; instruction in glute squeezes x 10 with min A x 1 for LLE, SLR x 10, hs curl with stability ball with mod A x 1 for LLE, alt lift offs from stability ball with mod A x 1 for LLE. Transfer from supine to sit with mod A x 1. Seated EOB balance with alt marching and alt LAQ's. STS from mat with min A x 1. Amb x 15 ft with walker and assist x 2 with mod v/c. Pt was brought back up to his room and we transferred from w/c to stand and utilized standard walker to amb into bathroom. Pt was left on toilet with nursing staff. A: Pt is very motivated and participates well with therapy. Pt demonstrates improvements in mobility and ability to maneuver LLE as compared to yesterday. Pt fatigued easily with activities and had difficulties walking at end of tx due to fatigue but with max v/c he was able to get a more steady/safe pattern. P: Continue per POC.
[2017-10-03] MEDS: LEVOTHYROXINE 50 MCG TABLET PO SCH (05:45)
[2017-10-03] MEDS: Multivitamin Tab 1 TAB PO SCH (09:02)
[2017-10-03] MEDS: ASPIRIN 325 MG TABLET PO SCH (09:02)
[2017-10-03] MEDS: ENOXAPARIN SODIUM 40 MG/0.4 ML SYRINGE SUBCUT SCH (09:02)
[2017-10-03] MEDS: CLOPIDOGREL 75 MG TABLET PO SCH (09:02)
[2017-10-03] MEDS: LISINOPRIL 20 MG TABLET PO SCH (09:02)
[2017-10-03 09:22] VITALS: O2SAT 93
[2017-10-03 12:19] VITALS: BP 155/87; RESP 16; TEMP 96.6
--- NOTE | 2017-10-03 13:34 | DCSUMMARY ---
Hospitalization Summary Admit Date: 09/30/2017 Discharge Date: 10/03/17 Primary Diagnosis:: CVA with left hemiplegia Hospital Course: This very pleasant 71-year-old male that came in with left-sided arm and leg weakness, he was found to have a thalamic stroke. He was admitted for workup in terms of the etiology of the stroke. 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 I discussed with neurology in [place] and we will actually have him see neurology in [place] for secondary stroke prevention visit as he does have some carotid artery disease, contralateral side of where the stroke occurred. That'll be followed as well. However, we placed the patient on antihypertensive medications, cluster medications, in dual antiplatelet therapy. He had no evidence of atrial fibrillation, cardiac monitoring was not revealing of any cardioembolic source. Echocardiogram showed LVH, but no evidence of any other cardioembolic source. The patient did well with physical therapy, but does have waxing and waning strength to his left upper extremity. His left lower extremity seemed improved. We do have a brace in place to help prevent foot drop if possible. He does have some numbness on his face from time to time that seems to wax and wane in intensity as well. When presented with rehabilitation options, he preferred [facility] in [place]. We were able to have him evaluated and accepted. He will go there today to continue stroke rehabilitation by private vehicle. I spoke with the hospitalist regarding the patient's medical condition , his blood pressure, hypercholesterolemia, and dual antiplatelet therapy. He will remain on Plavix after 21 days indefinitely. We are starting hydrochlorothiazide today. We also did find that the patient is hypothyroid and started Synthroid. Today, patient does not complain of any chest pain, shortness breath, nausea or vomiting but he has increased numbness on his left upper face, and his left arm feels a little more tired today and more dysarthric. His left leg is stronger today. He was able to ambulate a little bit better today. Assessment and Plan: 1. As per discharge assessments noted 2. Disposition: Patient is discharged by private car to [facility] 3. Condition on discharge, stable and improved. Will require acute rehabilitation therapy for his stroke. 4. Diet: regular diet, low-cholesterol 5. Activities: resume normal activities as directed at [facility] 6. Follow-Up: 1. Alanna Ferguson in November 2017, appointment made 2. Get cholesterol panel and TSH and free T4 on 11/21/2017 7. Medications at the Time of Discharge: Home Medications 3 Medication Instructions Recorded Confirmed Type Multivitamin [Multi-Vitamin Daily] 1 tab PO DAILY 09/30/17 09/30/17 History Acetaminophen [Tylenol] 650 mg PO Q6H PRN tab 10/03/17 Rx Aspirin 325 mg PO DAILY tab 10/03/17 Rx Atorvastatin Calcium [Lipitor] 80 mg PO QPM #90 tab 10/03/17 Rx Clopidogrel [Plavix] 75 mg PO DAILY #90 tab 10/03/17 Rx Hydrochlorothiazide 12.5 mg PO DAILY #30 tab 10/03/17 Rx Levothyroxine Sodium [Synthroid] 50 mcg PO DAILY@0530 #90 tab 10/03/17 Rx Lisinopril [Prinivil Tab] 20 mg PO DAILY #90 tab 10/03/17 Rx 8. Time, care, counseling and coordination of care for this discharge is greater than 30 minutes. Exam - Vitals Vital Signs: Vital Signs Temperature 96.6 F Temperature Source Temporal Artery Scan Pulse Rate [Pulse Oximeter] 78 Pulse Rate 80 Respiratory Rate 16 Blood Pressure [Left Arm] 155/87 Pulse Ox 93 Oxygen Delivery Method Room Air Weight 216 lb 6 oz - General General Appearance: No Acute Distress, Cooperative - Head Head Exam: Atraumatic - Eye Eye Exam: POSITIVE: No Scleral Icterus - ENT ENT Exam: POSITIVE: Mucous Membranes Moist - Respiratory Respiratory Exam: POSITIVE: Clear to Auscultation - Bilaterally, Breathing Non Labored - Cardiovascular Cardiovascular Exam: POSITIVE: RRR, No Murmur, No Clicks, No Gallops, No Rubs, No JVD - GI/Abdominal GI/Abdominal Exam: POSITIVE: Normal Bowel Sounds, Non Tender, Non Distended, Soft - Extremities Extremities Exam: POSITIVE: No Clubbing Present, No Edema Present, No Cyanosis Present - Neurological Neurological Exam: POSITIVE: Alert, Oriented x 3, No Facial Droop, Speech Intact / Clear Additional Neurological Exam Details: decreased left arm strength. decreased left leg strength, but better Data Peritnent Studies: 09/30/17 09/30/17 09/30/17 21:26 21:38 21:38 WBC 8.65 Hgb 14.5 Hct 41.3 L Plt Count 201 Sodium 143 Potassium 3.6 L Chloride 104 Carbon Dioxide 24 Anion Gap 15 BUN 18 Creatinine 1.0 BUN/Creatinine Ratio 18.00 Glucose 106 Calculated Osmolality 297.0 H Calcium 9.2 Magnesium 2.3 Total Bilirubin 0.4 AST 21 ALT 38 Alkaline Phosphatase 79 Lactate Dehydrogenase 436 C-Reactive Protein 1.4 H Total Protein 7.7 Albumin 4.5 Globulin 3.3 Triglycerides 638 H Cholesterol 316 H LDL Cholesterol, Calc 160.400 VLDL Cholesterol 127 H HDL Cholesterol 28 L Cholesterol/HDL Ratio 11.28 H TSH Free T4 Serum Alcohol < 10 09/30/17 10/01/17 21:38 04:06 WBC Hgb Hct Plt Count Sodium Potassium Chloride Carbon Dioxide Anion Gap BUN Creatinine BUN/Creatinine Ratio Glucose Calculated Osmolality Calcium Magnesium Total Bilirubin AST ALT Alkaline Phosphatase Lactate Dehydrogenase C-Reactive Protein Total Protein Albumin Globulin Triglycerides 295 H Cholesterol 261 H LDL Cholesterol, Calc 174.000 VLDL Cholesterol 59 H HDL Cholesterol 28 L Cholesterol/HDL Ratio 9.32 H TSH 4.25 H Free T4 0.91 L Serum Alcohol Procedures: [address] [place] [address] PH: DD: [phone] FAX: [phone] ~DIAGNOSTIC IMAGING REPORT~ Patient: Cristina Dean : 1945 Sex: M Age: 71 Exam Name: US Carotids Bilateral Exam Date: 10/01/17 Report # : [id number] CPT Code: 11034 EMR/MR #: [id number] Ordering: APRYL DANIEL Admiting: APRYL DANIEL DO Primary: LIZA SANTOS Attending: APRYL DANIEL DO Signed EXAM: US Duplex Bilateral Extracranial Arteries CLINICAL HISTORY: ITS.REASON stroke, question carotid artery disease Physician Notes: Tech Comments: TECHNIQUE: Real-time duplex ultrasound scan of the extracranial arteries integrating B-mode two-dimensional vascular structure, Doppler spectral analysis and color flow Doppler imaging. COMPARISON: No relevant prior studies available. FINDINGS: Right common carotid artery: No occlusion or significant stenosis on color flow and spectral Doppler imaging. Peak systolic velocity 74 - 83 cm/sec. Right internal carotid artery: No occlusion or significant stenosis on color flow and spectral Doppler imaging. Peak systolic velocity of 105 cm/sec. Right vertebral artery: Minimal flow detected. Right ICA/CCA ratio: 1.4. Left common carotid artery: No occlusion or significant stenosis on color flow and spectral Doppler imaging. Low peak systolic velocities 93 - 126 cm/sec Left internal carotid artery: No occlusion or significant stenosis on color flow and spectral Doppler imaging. Peak systolic velocity of 144 cm/sec Left vertebral artery: Antegrade flow.. Left ICA/CCA ratio: 1.1 CAROTID STENOSIS REFERENCE USING SRU CRITERIA: Mild - <50% stenosis. ICA PSV is less than 125 cm/second and plaque or intimal thickening is visible. Moderate - 50-69% stenosis. ICA PSV is 125 to 230 cm/second and plaque is visible. Severe - 70-94% stenosis. ICA PSV is more than 230 cm/second and visible plaque with lumen narrowing is seen. Near occlusion - 95-99% stenosis. ICA PSV is variable and significant plaque with luminal narrowing is seen. Occluded - 100% stenosis. No flow identified. IMPRESSION: No hemodynamically significant stenosis in the carotids. Less than 50% stenosis on the right and 50 - 69% stenosis on the left. Minimal flow in the right vertebral artery. Dictated By: Millie Noel MD Signed By: 10/01/17 1813 Millie Noel MD [address] [facility] [place] [address] PH: DD: [phone] FAX: [phone] ~DIAGNOSTIC IMAGING REPORT~ Patient: Cristina Dean : 1945 Sex: M Age: 71 Exam Name: MRI MRA Neck WO Contrast Exam Date: 10/01/17 Report # : [id number] CPT Code: 25729 EMR/MR #: [id number] Ordering: APRYL DANIEL Admiting: APRYL DANIEL DO Primary: LIZA SANTOS Attending: APRYL DANIEL DO Signed MRI MRA Neck WO Contrast,10/01/2017 7:00 AM: Clinical History: Transient ischemic attack. Previous Exam: None at this facility. Findings: Multiplanar MR images are obtained through the neck following a 2-D time-of- flight protocol, and demonstrates extremely limited evaluation due to motion artifact and poor bjukvn-wq-[id number] ratio. There is irregularity of the carotid arteries bilaterally, but this is believed to be largely artifactual. There is normal course and caliber the carotid bulb on the right was not well evaluated. There appears to be some plaque formation within the carotid bulbs, but this cannot be confirmed on these images. The left vertebral artery was only partially visible, but grossly normal. The right vertebral artery is not seen on this exam and was proven to be diminutive on the examination of the head. Impression: Extremely limited MRA images of the cervical vasculature. This appears to be predominantly due to artifact likely motion related. Dictated By: 10/01/17 1310 JOAN FIGUEROA MD. Signed By: 10/01/17 6077 JOAN FIGUEROA MD. [address] [facility] [place] [address] PH: DD: [phone] FAX: [phone] ~DIAGNOSTIC IMAGING REPORT~ Patient: Cristina Dean : 1945 Sex: M Age: 71 Exam Name: MRI MRA Head WO Contrast Exam Date: 10/01/17 Report # : [id number] CPT Code: 99412 EMR/MR #: [id number] Ordering: APRYL DANIEL Admiting: APRYL DANIEL DO Primary: LIZA SANTOS Attending: APRYL DANIEL DO Signed MRI MRA Head WO Contrast,10/01/2017 7:00 AM: Clinical History: Left-sided weakness. Previous Exam: None at this facility. Findings: Multiplanar MR images are obtained through the [place] following a 3-D [id number]-cycdcs protocol, and demonstrates absence of a right anterior cerebral artery involving the A1 segment. The anterior communicating artery is widely patent. Both A2 segments are also widely patent. The middle cerebral arteries are normal. The vertebral arteries are not well evaluated. The basilar artery is normal. Posterior communicating arteries are diminutive, but the left posterior communicating artery is visible. The right vertebral artery is extremely diminutive. Impression: 1. 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 There is no evidence that this aberration contributes to the acute ischemic event on the contralateral side. Dictated By: 10/01/17 1211 JOAN FIGUEROA MD. Signed By: 10/01/17 1230 JOAN FIGUEROA MD. [address] [facility] [facility] [place] [address] PH: DD: [phone] FAX: [phone] ~DIAGNOSTIC IMAGING REPORT~ Patient: Cristina Dean : 1945 Sex: M Age: 71 Exam Name: MRI Brain WO Contrast Exam Date: 10/01/17 Report # : [id number] CPT Code: 65578 EMR/MR #: [id number] Ordering: APRYL DANIEL Admiting: APRYL DANIEL DO Primary: LIZA SANTOS Attending: APRYL DANIEL DO Signed MRI Brain WO Contrast,10/01/2017 7:00 AM: Clinical History: Left-sided weakness. Previous Exam: None at this facility. Findings: Multiplanar MR images are obtained through the brain without contrast, and demonstrates a 14 x 8 mm focus of abnormally restricted diffusion involving the posterior right thalamus. This appears to extend into the posterior horn of the internal capsule as well. There is no hemorrhage nor midline shift. There are some scattered areas of increased FLAIR and T2 signal within the periventricular and subcortical white matter. The major vascular flow voids are unremarkable. Paranasal sinuses are unremarkable. Intraorbital structures are also unremarkable. Impression: 14 x 8 mm focus of abnormally restricted diffusion involving the pulvinar portion of the right thalamus. This is consistent with an acute ischemic event. Few scattered areas of increased FLAIR and T2 signal most consistent with small vessel ischemic changes. Dictated By: 10/01/17 1206 JOAN FIGUEROA MD. Signed By: 10/01/17 1215 JOAN FIGUEROA MD. [address] [facility] [place] [address] PH: DD: [phone] FAX: [phone] ~DIAGNOSTIC IMAGING REPORT~ Patient: CRISTINA DEAN : 1945 Sex: M Age: 71 Exam Name: CT Head WO Contrast Exam Date: 09/30/17 Report # : [id number] CPT Code: 24383 EMR/MR #: [id number] Ordering: Shahbaz Montano Admiting: Primary: Jocelyn Nogueira MD. Attending: Signed EXAM: CT Head Without Intravenous Contrast CLINICAL HISTORY: ITS.REASON numbness, lt. arm and leg, weakness lt side Physician Notes: Tech Comments: TECHNIQUE: Axial computed tomography images of the head/brain without intravenous contrast. COMPARISON: No relevant prior studies available. FINDINGS: Brain: A 4 cm posterior left parietal arachnoid cyst appears to be present. No hemorrhage. No significant white matter disease. Ventricles: Unremarkable. No ventriculomegaly. Bones/joints: Unremarkable. No acute fracture. Soft tissues: Unremarkable. Sinuses: Unremarkable as visualized. No acute sinusitis. Mastoid air cells: Unremarkable as visualized. No mastoid effusion. IMPRESSION: No acute findings. Dictated By: Quirino Jack MD Signed By: 09/30/172140 Quirino Jack MD Patient Problems - Patient Problem List (1) Stroke Current Visit: Yes Status: Acute Code(s): I63.9 - Cerebral infarction, unspecified Qualifiers: CVA mechanism: thrombosis Precerebral and cerebral artery: unspecified cerebral artery Qualified Code(s): I63.30 - Cerebral infarction due to thrombosis of unspecified cerebral artery Category: Medical (2) Hypercholesterolemia Current Visit: Yes Status: Acute Code(s): E78.00 - Pure hypercholesterolemia , unspecified Category: Medical (3) Hypothyroidism Current Visit: Yes Status: Acute Code(s): E03.9 - Hypothyroidism, unspecified Qualifiers: Hypothyroidism type: acquired Qualified Code(s): E03.9 - Hypothyroidism, unspecified Category: Medical (4) Hypertension Current Visit: Yes Status: Acute Code(s): I10 - Essential (primary) hypertension Qualifiers: Hypertension type: essential hypertension Qualified Code(s): I10 - Essential (primary) hypertension Category: Medical (5) Obesity (BMI 30.0-34.9) Current Visit: Yes Status: Acute Code(s): E66.9 - Obesity, unspecified Category: Medical (6) LVH (left ventricular hypertrophy) due to hypertensive disease Current Visit: Yes Status: Acute Code(s): I11.9 - Hypertensive heart disease without heart failure Qualifiers: Heart failure presence: without heart failure Qualified Code(s): I11.9 - Hypertensive heart disease without heart failure Category: Medical
--- NOTE | 2017-10-04 11:45 | OTI REPORT ---
Thank you for the referral of Sav Dean. He was seen on 10/01/17 for an occupational therapy inpatient evaluation secondary to a TIA. SUBJECTIVE: The patient is a 71-year-old male who presented to the emergency room last night secondary to increased weakness in the left arm and leg. Today the patient reports that he is feeling a little better; however, he does continue to have some weakness. Upon moving he did report some dizziness and lightheadedness. He continues to feel that the left side is heavy. The patient reports that at prior level of function he was independent in most ADL tasks. 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 The patient's home is all on one level with no steps to the entrance. The patient does have a tub transfer bench in one bathroom and the other bathroom has a walk-in shower. He also has a comfort height toilet seat. At prior level of function, the patient was ambulating independently without the use of adaptive equipment and he was able to complete iADL tasks to include grocery shopping, cooking, cleaning, and laundry. His assisted with some tasks and he assisted with some tasks. PAST MEDICAL HISTORY: Past medical history can be found in the patient's medical record. OBJECTIVE FINDINGS: General observations: The patient was oriented to person, date, day, and reason for hospitalization; however throughout therapy session he did express some confusion as to when injury occurred. Vision: The patient demonstrated the ability to track laterally to the right and left without difficulty. He did demonstrate the ability to converge and diverge eyes with the right side independently. The left eye was slow or delayed during converge and divergence. He did demonstrate peripheral vision to the left and the right side without difficulty. Range of motion: Upper extremity range of motion was within functional limits on the right side for the shoulder, elbow, hand, and wrist. It was within functional limits on the left side as well; however, it was delayed getting to full range of motion. Strength: Upper extremity strength on the right side for the shoulder, elbow, hand, and wrist is a 5/5 for manual muscle grade and on the left is 3+ to 4/5 for the shoulder and 4/5 for the elbow, hand, and wrist. The patient did demonstrate some fine motor issues and fine manual coordination issues with the left hand during initial evaluation. Bed mobility: The patient demonstrated the ability to move from supine to sitting edge of bed with moderate assistance. Transfers: The patient required moderate assistance x2 to stand from edge of bed due to left sided weakness. Upon standing, the patient did report some light headedness and dizziness. He had difficulty standing upright as he wanted to lean to the left. He required verbal cues to weight shift to the right. He was able to stand for approximately 30 seconds before he needed a rest break. He was able to use the left hand gripping onto the walker. Ambulation: Functional ambulation was not completed at the time of assessment due to the patient not having shoes. Activities of daily living: Upper and lower extremity dressing was not appropriate at the time of evaluation. ASSESSMENT: Problem List: Decreased left upper extremity strength Decreased ability to perform fine motor skills Decreased functional mobility tasks Decreased activity tolerance Decreased ability to perform functional transfers Decreased ability to perform upper and lower extremity dressing Possible decreased cognition Possible speech/swallow issues Short-Term Goals: To be met by discharge from inpatient: Patient will increase upper extremity strength on the left side to 4+/5. Patient will increase activity tolerance to tolerate 10 minutes of upper extremity strengthening and or stand x10 minutes at the sink to complete grooming tasks. Patient will complete lower extremity dressing tasks with modified independence with use of adaptive equipment as needed. Patient will complete upper extremity dressing tasks independently. 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 Patient will demonstrate the ability to complete bed mobility tasks independently. Patient will demonstrate the ability to complete toileting tasks independently. Patient will participate in cognitive testing and possibly executive function tasks if appropriate. Long-Term Goals: To be met following discharge from inpatient: Patient will return home to normal activities safely. Patient may be seen by outpatient physical therapy for continued treatment. TREATMENT PLAN: Patient will be seen B.I.D during the week and one time per day over the weekend as an inpatient to address the above goals and objectives. The patient may benefit from cognitive testing and a swallow evaluation to ensure safety with swallowing and to ensure proper cognitive functions. INITIAL TREATMENT: Treatment today consisted of the initial evaluation followed by bed mobility tasks and functional transfers. KIRILL
--- NOTE | 2017-10-04 12:11 | OTI REPORT ---
Thank you for the referral of Sav Dean. He was seen on 10/02/17 for an occupational therapy swallow evaluation. SUBJECTIVE: The patient is a 71-year-old male who suffered a TIA and is having left sided effects of the arm and leg. At first he stated that he did have some facial numbness, but as of today he reports that he has no numbness or tingling on the left side. PAST MEDICAL HISTORY: Past medical history can be found in the patient's medical record. OBJECTIVE FINDINGS: Pre-Swallow Assessment: Alertness and responsiveness: The patient was alert and responsive. Reliable responses: The patient had reliable yes and no responses. Facial symmetry: The patient demonstrated facial symmetry. Lips: He was able to smile and complete lateralization and puckering with lips. Tongue lateralization: The patient had good tongue lateralization to the left and the right and was able to fully complete tongue lateralization in the lateral sulci of the left and right side. Apraxia: The patient demonstrated no apraxia with the oral motor or facial region. Volitional dry swallow: The patient had a good volitional dry swallow and good laryngeal elevation with this. Secretions: The patient demonstrated being able to handle his own secretions. Oxygen: The patient is not on oxygen. Cough: The patient's cough was within normal limits. Dentition: The patient has his own dentition. Voice quality: Voice quality is good. Head control: Head control was good. Lip control: Lip control was good. Lingual function: Lingual function was good. Sensation: Sensation was normal in the buccal, labial, and lingual regions. Gag reflex: Gag reflex was normal. General observations: The patient was sitting in chair upon the therapist's arrival. He does have left hemiplegia in the upper extremity and lower extremity. His behavior was within normal limits. Feeding Assessment: The patient has an automatic swallow. Laryngeal elevation is intact. Today he was observed eating lunch which included chicken cordon alissa, a regular salad with small tomatoes, pie, and au gratin potatoes. The patient demonstrated good bolus control. He demonstrated good mastication, within normal limit swallow transit time. He had one to two swallows per bolus. Laryngeal elevation was within normal limits with all textures today. He was negative for cough and did not demonstrate any pocketing or drooling. Voice post feed was within normal limits. The patient was assessed with thin liquids prior to food intake along with liquid intake with the meal. He demonstrated good laryngeal elevation. He did not demonstrate any external signs of aspiration. The patient was able to take his medication per nursing report normally and did not demonstrate aspiration. The patient is able to feed self with his right hand. He is using a rocker knife in order to cut food. Swallow rate was appropriate and efficiency for adequate PO intake seems sufficient. ASSESSMENT: The patient can have thin liquids and be on a regular diet. He demonstrated being able to drink thin liquids and eat regular food items. The patient was able to demonstrate taking whole medications without aspiration. Therapeutic management includes keeping patient upright for all meals. The patient tends to adapt to his own needs for rate of swallow and liquid intake. Dr. Ibarra and his nurse were informed of the results. SWALLOW GOALS: Patient will continue to eat regular food and thin liquid 100% of the time without external signs of aspiration. TREATMENT PLAN: There is no further need for swallow rehab. INITIAL TREATMENT: Treatment today consisted of the swallow evaluation only. KIRILL
--- NOTE | 2017-10-04 12:30 | OT PM DAY ---
Diagnosis : TIA PM - Occupational Therapy S: The patient reports he would like to come down for therapy. O: Today we worked on ADLs including the patient dressing himself. He does have difficulty with his left lower extremity. His left hand is definitely demonstrating coordination difficulties. He needed min assist to don pants over the feet. Once at the feet, he needed increased time in order to pull pants to mid thigh level. Once standing, he was dependent with donning pants from thigh level to waist level to keep balance to pull shorts up. He is really leaning to that left side and has difficulty keeping an upright posture. Today for the shirt, he needed cues to put on his left arm first and then his right arm and then over the head. He needed min assist for the shirt. The patient came from sit to stand with max assist and required max assist to ambulate approximately 10 feet. He then transferred into the wheelchair. Downstairs in therapy he completed therapeutic exercises to work on left upper extremity strength and coordination. 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 His strength overall has not been compromised but he is having a lot of coordination difficulties. He did perform the upper body ergometer x3 minutes forward and 3 minutes backward followed by wall pulleys for shoulder extension, triceps, rows, biceps, shoulder adduction, and internal rotation. We also worked on fine motor coordination activities including clothespins which he was able to complete with increased time and multiple attempts. He did become a little bit frustrated with this. He also completed [employer] for gross grasp, digi- flex, turning cards, and shuffling cards. A: The patient is mostly demonstrating upper extremity coordination difficulties. He would benefit from working on fine motor manipulation as well as overall core and proximal upper extremity strength. His functional transfers require max assist and he is having a lot of difficulty with his standing abilities, especially when completing ADLs. P: Continue seeing patient BID during the week and one time per day over the weekend for upper extremity strengthening, ADLs, and overall functional mobility. KIRILL
== END 2017-10-03 14:20 | disposition home or self-care (01) | DRG 65 ==
LOC: ER 21:06 → MED/SURG 21:06
PROVIDERS: ADMIT Family Medicine; ATTEND Family Medicine